=== PATIENT | male | born 1940 | race Hispanic/Latino ===

== ENCOUNTER 2017-09-20 18:57 | Emergency (ER) | payer MEDICARE ==
[2017-09-20 19:06] VITALS: RESP 18; TEMP 97.9; BMI 26.9
[2017-09-20] MEDS ORDERED: Oxycodone/Acetaminophen 5/325 mg Tab PO STA (19:19)
--- NOTE | 2017-09-20 19:24 | ED PDOC ---
Arrival/HPI - General Chief Complaint: Trauma Time Seen by Provider: 09/20/17 19:09 Historian: Patient - History of Present Illness Narrative History of Present Illness (Text): 09/20/17 19:25 77yo male who present with complaint of b/l knee pain. He notes history of b/l knee pain x years. States he tripped and fell, hitting knees on the floor yesterday. Describes pain as sharp, worse with ambulation. Notes that he have orthopedist and have had ??unknown surgery on the knee in the past. Denies calf pain, SOB, diaphoresis, chest pain, any other complaint. Past Medical History - Provider Review Nursing Documentation Reviewed: Yes - Infectious Disease Hx of Infectious Diseases: None - Tetanus Immunization Tetanus Immunization: Unknown - Cardiac Hx WA: Yes Hx Hypertension: Yes - Pulmonary Hx Respiratory Disorders: No - Neurological Hx Neurological Disorder: No - HEENT Hx HEENT Disorder: (WEARS RX GLASSES) - Renal Hx Renal Disorder: No - Endocrine/Metabolic Hx Endocrine Disorders: No - Hematological/Oncological Hx Blood Transfusions: No - Integumentary Hx Dermatological Disorder: Yes (SKIN TAGS ALL OVER NECK,ABDOMEN,CHEST) - Musculoskeletal/Rheumatological Hx Musculoskeletal Disorders: Yes (LEFT ROTATOR CUFF SX) - Gastrointestinal Hx Diverticulitis: Yes - Genitourinary/Gynecological Hx Genitourinary Disorders: No - Psychiatric Hx Emotional Abuse: No Hx Physical Abuse: No Hx Substance Use: No - Surgical History Hx Cardiac Catheterization: Yes Hx Coronary Stent: Yes (3) - Anesthesia Hx Anesthesia Reactions: No Hx Malignant Hyperthermia: No - Suicidal Assessment Feels Threatened In Home Enviroment: No Family/Social History - Physician Review Nursing Documentation Reviewed: Yes Family/Social History: Unknown Family HX Smoking Status: Never Smoked Hx Alcohol Use: Yes (USED TO DRINK WEEKENDS/VODKA QUIT) Hx Substance Use: No Hx Substance Use Treatment: No Allergies/Home Meds Allergies/Adverse Reactions: Allergies No Known Allergies Allergy (Verified 09/20/17 19:08) Home Medications: Home Meds Medication Instructions Recorded Confirmed Clonazepam [Klonopin] 0.5 mg PO BID PRN 05/24/12 09/20/17 Cyclobenzaprine [Cyclobenzaprine 10 mg PO BID PRN MDD pain 09/20/17 09/20/17 HCl] Ibuprofen [Motrin] 400 mg PO TID PRN 09/20/17 09/20/17 Omeprazole [Omeprazole] 1 tab PO DAILY 09/20/17 09/20/17 Review of Systems - Physician Review All systems were reviewed & negative as marked: Yes - Review of Systems Constitutional: Normal Eyes: Normal ENT: Normal Respiratory: Normal Cardiovascular: Normal Gastrointestinal: Normal Genitourinary Male: Normal Musculoskeletal: Arthralgias (B/L knee) Skin: Normal Neurological: Normal Endocrine: Normal Hemo/Lymphatic: Normal Psychiatric: Normal Physical Exam Vital Signs Reviewed: Yes Vital Signs Temp Pulse Resp BP Pulse Ox 09/20/17 20:15 57 L 18 152/66 H 98 09/20/17 19:05 97.9 F 76 18 131/76 96 Temperature: Afebrile Blood Pressure: Normal Pulse: Regular Respiratory Rate: Normal Appearance: Positive for: Well-Appearing, Non-Toxic, Comfortable Pain Distress: None Mental Status: Positive for: Alert and Oriented X 3 - Systems Exam Head: Present: Atraumatic, Normocephalic Pupils: Present: PERRL Extroacular Muscles: Present: EOMI Conjunctiva: Present: Normal Mouth: Present: Moist Mucous Membranes Neck: Present: Normal Range of Motion Respiratory/Chest: Present: Clear to Auscultation, Good Air Exchange. No: Respiratory Distress, Accessory Muscle Use Cardiovascular: Present: Regular Rate and Rhythm, Normal S1, S2. No: Murmurs Abdomen: Present: Normal Bowel Sounds. No: Tenderness, Distention, Peritoneal Signs Back: Present: Normal Inspection Upper Extremity: Present: Normal Inspection. No: Cyanosis, Edema Lower Extremity: Present: CALF TENDERNESS (Right calf), NORMAL PULSES, Normal ROM, Tenderness (Right lateral knee). No: Edema, Stephy's Sign, Swelling, Erythema, Deformity, Temperature Abnormalties Neurological: Present: GCS=15, CN II-XII Intact, Speech Normal Skin: Present: Warm, Dry, Normal Color. No: Rashes Psychiatric: Present: Alert, Oriented x 3, Normal Insight, Normal Concentration Medical Decision Making ED Course and Treatment: 09/20/17 20:15 B/L knee xray - No acute fracture noted Per US tech Doppler was negative for DVT b/l Result was DW the pt. Aguila wrap applied. Cane given. Pt have orthopedist and was referred to his orthopedist. - RAD Interpretation Radiology Orders: 09/20/17 19:18 DUPLEX LOWER EXTRM VEIN BILAT [US] Stat 09/20/17 19:19 KNEE W PATELLA BILAT 3 VIEW [RAD] Stat - Medication Orders Current Medication Orders: Discontinued Medications Oxycodone/Acetaminophen (Percocet 5/325 Mg Tab) 1 tab PO STAT STA Stop: 09/20/17 19:20 Last Admin: 09/20/17 19:30 Dose: 1 tab MAR Pain Assessment Document 09/20/17 19:30 CNR (Rec: 09/20/17 19:32 CNR [id number]) Pain Reassessment Is this a pain reassessment? Yes Sleep Is patient sleeping during reassessment? No Presence of Pain Presence of Pain Yes Location Left, Right or Bilateral Bilateral Pain Location Body Site Knee Description Description Constant Intensity of Pain at present 10 Disposition/Present on Arrival - Present on Arrival Any Indicators Present on Arrival: No History of DVT/PE: No History of Uncontrolled Diabetes: No Urinary Catheter: No History of Decub. Ulcer: No History Surgical Site Infection Following: None - Disposition Have Diagnosis and Disposition been Completed?: Yes Diagnosis: Knee pain, bilateral Disposition: HOME/ ROUTINE Disposition Time: 20:20 Patient Plan: Discharge Patient Problems: Current Active Problems Problem Status Onset Knee pain, bilateral Acute Condition: STABLE Discharge Instructions (ExitCare): Knee Pain (ED) Additional Instructions: Follow up with your Orthopedist Return to ED for any new symptoms Prescriptions: Naproxen [Naprosyn] 500 mg PO BID #20 tab Referrals: Reece Haddad MD [Primary Care Provider] - Follow up with primary Forms: [employer] (Namibian)
[2017-09-20 20:20] VITALS: BP 152/66; PULSE 57; O2SAT 98
--- NOTE | 2017-09-21 09:43 | RAD ---
PROCEDURE: Bilateral Knee Radiographs. HISTORY: knee pain COMPARISON: None. FINDINGS: BONES: Right Knee: No fracture. Osteophytosis medial knee joint line most notable. Osseous hypertrophy also tibial fibular articulation. Spurring patellofemoral articulation Left Knee: Same as above JOINTS: Right Knee: Osteoarthrosis Left knee: Osteoarthrosis SOFT TISSUES: Right Knee: Atherosclerotic vascular calcifications thigh and lower leg Left Knee: Same as above JOINT EFFUSION: Right Knee: None. Left Knee: None. OTHER FINDINGS: None. IMPRESSION: No fracture or dislocation. Bilateral multi compartmental osteoarthrosis Atherosclerotic vascular disease-bilateral
--- NOTE | 2017-09-21 09:49 | US ---
HISTORY: Leg pain and swelling. Evaluate for DVT PHYSICIAN(S): Abelino Griffiths MD. TECHNIQUE: Duplex sonography and color-flow Doppler with graded compression were used to evaluate the deep venous systems of both lower extremities. FINDINGS: The visualized deep venous systems of both lower extremities are sonographically normal and compressible. Normal wave forms and augmentation are seen. There is no sonographic evidence for deep venous thrombosis in the visualized segments of both lower extremities. IMPRESSION: No sonographic evidence for deep venous thrombosis in the visualized segments of both lower extremities.
== END 2017-09-20 21:19 | disposition home or self-care (01) ==
LOC: ED 18:57
DX: M25.562 Pain in left knee (principal); M25.561 Pain in right knee; I10 Essential (primary) hypertension; I25.2 Old myocardial infarction

== ENCOUNTER 2018-02-04 00:42 | Inpatient (IN) | payer MEDICARE ==
--- NOTE | 2018-02-04 01:46 | ED PDOC ---
Arrival/HPI - History of Present Illness Time/Duration: < week Symptom Course: Improving Quality: Aching Activities at Onset: Rest <Camden Hood - Last Filed: 02/04/18 03:45> <Manjit Lenz DO - Last Filed: 02/04/18 06:28> - General Chief Complaint: Chest Pain Time Seen by Provider: 02/04/18 00:54 - History of Present Illness Narrative History of Present Illness (Text): 02/04/18 01:42 77M pmhx significant for HTN, CAD presents to [facility] ED after multiple episodes of nausea, non-bloody, non-bilious vomiting, nonbloody diarrhea that started on Tuesday01/31/18 (3 days). States was in the hospital, the evening he went home and symptoms started. In addition, patient had total body aches, generalized weakness, and fevers w/ a Tm 100.4. Patient currently no long is experiencing arthralgias. Currently unable to eat or drink w/o vomiting or diarrhea. Patient fell in house 3 times. Never lost consciousness. took 1.5hrs to get back up due to weakness. Denies abdominal pain. PMD: Dr. Haddad PMH: stated above PSH: shoulder sgx ALL: NKDA SocialHx: hx of tobacco use, last use 40+ years ago. ambulates w/ cane at home. 02/04/18 03:05 (Camden Hood) Past Medical History - Provider Review Nursing Documentation Reviewed: Yes - Travel History Have you recently traveled outside [place] w/in the past 3 mons?: No - Infectious Disease Hx of Infectious Diseases: None - Tetanus Immunization Tetanus Immunization: Unknown - Cardiac Hx MA: Yes Hx Hypertension: Yes - Pulmonary Hx Respiratory Disorders: No - Neurological Hx Neurological Disorder: No - HEENT Hx HEENT Disorder: (WEARS RX GLASSES) - Renal Hx Renal Disorder: No - Endocrine/Metabolic Hx Endocrine Disorders: No - Hematological/Oncological Hx Blood Transfusions: No - Integumentary Hx Dermatological Disorder: Yes (SKIN TAGS ALL OVER NECK,ABDOMEN,CHEST) - Musculoskeletal/Rheumatological Hx Musculoskeletal Disorders: Yes (LEFT ROTATOR CUFF SX) - Gastrointestinal Hx Diverticulitis: Yes - Genitourinary/Gynecological Hx Genitourinary Disorders: No - Psychiatric Hx Emotional Abuse: No Hx Physical Abuse: No Hx Substance Use: No - Surgical History Hx Cardiac Catheterization: Yes Hx Coronary Stent: Yes (3) - Anesthesia Hx Anesthesia Reactions: No Hx Malignant Hyperthermia: No - Suicidal Assessment Feels Threatened In Home Enviroment: No <Camden Hood - Last Filed: 02/04/18 03:45> Family/Social History - Physician Review Nursing Documentation Reviewed: Yes Family/Social History: Other (non-contributory) Smoking Status: Never Smoked Hx Alcohol Use: Yes (USED TO DRINK WEEKENDS/VODKA QUIT) Hx Substance Use: No Hx Substance Use Treatment: No <Camden Hood - Last Filed: 02/04/18 03:45> Allergies/Home Meds <Camden Hood - Last Filed: 02/04/18 03:45> <Manjit Lenz DO - Last Filed: 02/04/18 06:28> Allergies/Adverse Reactions: Allergies No Known Allergies Allergy (Verified 02/04/18 00:48) Home Medications: Home Meds Medication Instructions Recorded Confirmed Aspirin [Aspirin Chewable] 81 mg PO 02/04/18 Lisinopril [Zestril] 10 mg PO DAILY 02/04/18 02/04/18 Meclizine [Antivert] 25 mg PO Q6 PRN 02/04/18 02/04/18 Metoprolol 02/04/18 Metoprolol Tartrate [Lopressor] PO BID 02/04/18 Omeprazole Magnesium [Prilosec Otc] 20 mg PO 02/04/18 Review of Systems - Review of Systems Constitutional: Fatigue, Fevers. absent: Weight Change, Night Sweats Eyes: absent: Vision Changes, Photophobia ENT: absent: Hearing Changes, Tinnitus Respiratory: absent: SOB, Cough, Sputum Cardiovascular: absent: Chest Pain, Palpitations Gastrointestinal: Diarrhea, Nausea, Vomiting. absent: Abdominal Pain, Constipation Genitourinary Male: absent: Dysuria Musculoskeletal: Arthralgias Skin: absent: Rash Neurological: absent: Headache Endocrine: absent: Diaphoresis Hemo/Lymphatic: absent: Adenopathy Psychiatric: absent: Anxiety <Camden Hood - Last Filed: 02/04/18 03:45> - Physician Review All systems were reviewed & negative as marked: Yes <Manjit Lenz DO - Last Filed: 02/04/18 06:28> Physical Exam Vital Signs Reviewed: Yes Temperature: Afebrile Blood Pressure: Normal Pulse: Regular Respiratory Rate: Normal Appearance: Positive for: Well-Appearing, Non-Toxic, Comfortable Pain Distress: None Mental Status: Positive for: Alert and Oriented X 3 - Systems Exam Head: Present: Atraumatic Pupils: Present: PERRL Extroacular Muscles: Present: EOMI Conjunctiva: Present: Normal Mouth: Present: Dry Pharnyx: No: EXUDATE, Peritonsilar Swelling Neck: Present: Normal Range of Motion. No: JVD Respiratory/Chest: Present: Clear to Auscultation. No: Respiratory Distress, Accessory Muscle Use, Wheezes, Rhonchi Cardiovascular: Present: Regular Rate and Rhythm, Normal S1, S2. No: Murmurs Abdomen: No: Tenderness, Distention, Peritoneal Signs Back: No: CVA Tenderness, Decubitus Ulcer Upper Extremity: Present: Normal ROM, NORMAL PULSES. No: Normal Inspection Lower Extremity: Present: Normal Inspection. No: CALF TENDERNESS Neurological: Present: GCS=15, Speech Normal Skin: Present: Dry, Other (multiple dark raised skin lesions on back, chest and neck) Psychiatric: Present: Alert, Oriented x 3 <Camden Hood - Last Filed: 02/04/18 03:45> Vital Signs Temp Pulse Resp BP Pulse Ox 02/04/18 03:30 84 18 112/62 100 02/04/18 00:54 98.7 F 80 16 105/55 L 93 L Medical Decision Making - Lab Interpretations I have reviewed the lab results: Yes - EKG Interpretation Interpreted by ED Physician: Yes Type: 12 lead EKG <Camden oHod - Last Filed: 02/04/18 03:45> - Lab Interpretations I have reviewed the lab results: Yes - EKG Interpretation Interpreted by ED Physician: Yes Type: 12 lead EKG <Manjit Lenz DO - Last Filed: 02/04/18 06:28> ED Course and Treatment: 02/04/18 01:49 - IVF - Pepcid/Zofran - CT scan of abd - CBC/CMP - f/u lab work - re-evaluate (Camden Hood) Patient Seen With Resident: In agreement with resident note which contains more details about the patient. Patient was seen and evaluated with resident. Came up with plan and treatment together. 77 year old male presents complaining of multiple epsiodes of nasuea, vomiting, and diarrhea that began 3 days ago associated with generalized weakness and fever. Plan: -- CT Abd & Pelvis w/o Contrast -- EKG -- Labs -- Chest X-Ray -- Pepcid, IV Fluids, and Zofran Inj -- Urine Culture -- Urinalysis (Manjit Lenz DO) - Lab Interpretations Narrative Lab Interpretation (Text): 02/04/18 02:21 Cr- 2.5: severe dehydration CKMB- > 1000 (Camden Hood) Lab Results: 02/04/18 01:43 02/04/18 01:43 Lab Results 02/04/18 01:43: Sodium 142, Potassium 3.4 L, Chloride 99, Carbon Dioxide 30, Anion Gap 17, BUN 31 H, Creatinine 2.5 H, Est GFR ( Amer) 31, Est GFR ( Non-Af Amer) 25, Random Glucose 128 H, Calcium 9.5, Magnesium 2.3 H, Total Bilirubin 0.7, AST 96 H, ALT 47, Alkaline Phosphatase 63, Lactate Dehydrogenase 776 H, Total Creatine Kinase > 1600 H, CK-MB (CK-2) 1.2, CK-MB (CK-2) % Cancelled, Troponin I 0.05 D, NT-Pro-B Natriuret Pep 240, Total Protein 7.4, Albumin 4.1, Globulin 3.4, Albumin/Globulin Ratio 1.2 02/04/18 01:43: WBC 3.8 L D, RBC 5.43, Hgb 15.7, Hct 46.7, MCV 86.0, MCH 28.9, MCHC 33.6, RDW 14.5, Plt Count 118 L, MPV 10.3, Gran % 46.3 L, Lymph % (Auto) 39.7 H, Potter % (Auto) 11.3 H, Eos % (Auto) 2.4, Baso % (Auto) 0.3, Gran # 1.76, Lymph # (Auto) 1.5, Potter # (Auto) 0.4, Eos # (Auto) 0.1, Baso # (Auto) 0.01 - RAD Interpretation Narrative RAD Interpretations (Text): 02/04/18 03:45 CT scan w/o Contrast- 1. No acute findings. 2. Internalized biliary stent. 3. Mild enlargement of cystic pancreatic tail mass which was seen on prior examination CXR: No acute pulmonary findings. Cardiomegaly, Old left AC separation (Camden Hood) Radiology Orders: 02/04/18 01:15 CHEST PORTABLE [RAD] Stat 02/04/18 02:21 ABD & PELVIS W/O PO OR IV CONT [CT] Stat - EKG Interpretation EKG Interpretation (Text): 02/04/18 05:04 NSR QTc 90ms (Camden Hood) - Medication Orders Current Medication Orders: Sodium Chloride (Sodium Chloride 0.9%) 1,000 mls @ 100 mls/hr IV .Q10H KELLIE Last Admin: 02/04/18 02:04 Dose: 100 mls/hr eMAR Start Stop Document 02/04/18 02:04 OCS (Rec: 02/04/18 02:04 [id number] Intravenous Solution Start Date 02/04/18 Start Time 02:04 Discontinued Medications Famotidine (Pepcid) 20 mg IVP STAT STA Stop: 02/04/18 01:42 Last Admin: 02/04/18 02:05 Dose: 20 mg IVP Administration Document 02/04/18 02:05 OCS (Rec: 02/04/18 02:05 [facility]CS [id number]) Charges for Administration # of IVP Administrations 1 Ondansetron HCl (Zofran Inj) 4 mg IVP STAT STA Stop: 02/04/18 01:42 Last Admin: 02/04/18 02:05 Dose: 4 mg IVP Administration Document 02/04/18 02:05 OCS (Rec: 02/04/18 02:05 [id number] Charges for Administration # of IVP Administrations 1 <Camden Hood - Last Filed: 02/04/18 03:45> - PA / INTERNAL SALES ENGINEER / Resident Statement / has reviewed & agrees with the documentation as recorded. / has examined the patient and agrees with the treatment plan. - Scribe Statement The provider has reviewed the documentation as recorded by the Scribe <Manjit Lenz DO - Last Filed: 02/04/18 06:28> - Scribe Statement Yara Villanueva Provider Scribe Attestation: All medical record entries made by the Scribe were at my direction and personally dictated by me. I have reviewed the chart and agree that the record accurately reflects my personal performance of the history, physical exam, medical decision making, and the department course for this patient. I have also personally directed, reviewed, and agree with the discharge instructions and disposition. (Manjit Lenz DO) Disposition/Present on Arrival - Present on Arrival Any Indicators Present on Arrival: No History of DVT/PE: No History of Uncontrolled Diabetes: No Urinary Catheter: No History of Decub. Ulcer: No History Surgical Site Infection Following: None - Disposition Have Diagnosis and Disposition been Completed?: Yes Disposition Time: 05:05 Patient Plan: Admission <Camden Hood - Last Filed: 02/04/18 03:45> - Disposition Disposition Time: 02:50 <Manjit Lenz DO - Last Filed: 02/04/18 06:28> - Disposition Diagnosis: Dehydration, MARIE (acute kidney injury) Disposition: HOSPITALIZED Patient Problems: Current Active Problems Problem Status Onset Dehydration Acute MARIE (acute kidney injury) Acute Condition: STABLE
[2018-02-04] MEDS ORDERED: Iohexol 350 MG/100 ML VIAL ONE (01:48)
[2018-02-04 01:53] LABS: BASO # 0.01 K/mm3 (0.0-2.0); BASO % 0.3 % (0.0-3.0); EOS # 0.1 (0.0-0.7); EOS % 2.4 % (1.5-5.0); GRAN # 1.76 (1.4-6.5); GRAN % 46.3 % (50.0-68.0); HEMOGLOBIN 15.7 g/dL (14.0-18.0); LYMPH # 1.5 (1.2-3.4); LYMPH % 39.7 % (22.0-35.0); MEAN CORPUSCULAR HEMOGLOBIN 28.9 pg (25.0-35.0); MEAN CORPUSCULAR HGB CONC 33.6 g/dl (31.0-37.0); MEAN PLATELET VOLUME 10.3 fl (7.0-11.0); MONO # 0.4 (0.1-0.6); MONO % 11.3 % (1.0-6.0); RBC 5.43 10^6/uL (3.5-6.1); RED CELL DISTRIBUTION WIDTH 14.5 % (11.5-14.5); WHITE BLOOD COUNT 3.8 10^3/ul (4.5-11.0)
[2018-02-04] MEDS: Sodium Chloride 0.9% 1,000 ML IV SCH ×2 (02:04→15:48)
[2018-02-04 02:07] LABS: ALB/GLOB RATIO 1.2 (1.1-1.8); ALBUMIN 4.1 g/dL (3.0-4.8); ALT/SGPT 47 U/L (7-56); AST/SGOT 96 U/L (17-59); BLOOD UREA NITROGEN 31 mg/dL (7-21); CALCIUM 9.5 mg/dL (8.4-10.5); GFR AFRICAN-AMERICAN 31; GFR NON-AFRICAN AMERICAN 25
[2018-02-04 02:19] LABS: B-TYPE NATRIURETIC PEPTIDE 240 pg/mL (0-450); TROPONIN I 0.05 ng/mL
[2018-02-04 02:42] LABS: CK-MB 1.2 ng/mL (0.0-3.6)
--- NOTE | 2018-02-04 03:30 | CT ---
EXAM: CT Abdomen and Pelvis Without Intravenous Contrast CLINICAL HISTORY: 77 years old, male; Pain; Abdominal pain; Additional info: Intractible vomiting TECHNIQUE: Axial computed tomography images of the abdomen and pelvis without intravenous contrast. All CT scans at this facility use one or more dose reduction techniques, viz.: automated exposure control; ma/kV adjustment per patient size (including targeted exams where dose is matched to indication; i.e. head); or iterative reconstruction technique. 656 images are submitted.Limitations: Absence of IV contrast decreases sensitivity for detecting vascular and visceral injury and abnormality. Coronal and sagittal reformatted images were created and reviewed. COMPARISON: CT - ABD PELVIS PO CONTRAST ONLY 2017-02-18 19:17 FINDINGS: Lower thorax: Bibasilar nonspecific infiltrates are present, consistent with atelectasis or pneumonia. Small right pleural effusion. Small hiatal hernia. Possible ulcerative plaque versus penetrating ulcer in the distal descending thoracic aorta as seen on image one series 2 versus artifact. ABDOMEN: Liver: There is intrahepatic biliary stent. Gallbladder and bile ducts: Cholecystectomy. Pancreas: There is pancreatic tail hypodense mass measuring 3.1 x 2.6 cm which wasn't seen on prior examination from February 18, 2017 and has somewhat increased in size. There is no surrounding inflammation. Correlation with patient's clinical diagnosis is recommended. Spleen: Unremarkable. No splenomegaly. Adrenals: Unremarkable. No mass. Kidneys and ureters: Bilateral perinephric scarring may be a sequela of infection, inflammation or aging. No obstructing stones. No hydronephrosis. Stomach and bowel: Nonspecific gastric thickening likely due to under distention. Correlation with clinical data is recommended if gastritis is suspected.Diverticulosis. No obstruction. Appendix: Normal appendix. PELVIS: Bladder: Partially decompressed bladder with bladder wall thickening. Correlation with urinalysis is recommended only if clinical cystitis is suspected. Reproductive: Enlarged prostate gland with a patient. ABDOMEN and PELVIS: Intraperitoneal space: Unremarkable. No free air. No significant fluid collection. Bones/joints: L5-S1 vacuum disc. No acute fracture. No dislocation. Soft tissues: Left more than right inguinal herniation of fat. Vasculature: Distal abdominal aortic aneurysm measuring 3.1 cm. no rupture Lymph nodes: Unremarkable. No enlarged lymph nodes. IMPRESSION: 1. No acute findings. 2. Internalized biliary stent. 3. 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 Correlation with patient's clinical diagnosis is recommended. Correlation with internal medicine evaluation and further workup or followup as recommended by patient's clinical data.
[2018-02-04 06:44] VITALS: BMI 28.0
--- NOTE | 2018-02-04 09:57 | RAD ---
HISTORY: Chest pain COMPARISON: 07/15/2015 FINDINGS: LUNGS: No active pulmonary disease. PLEURA: No significant pleural effusion identified, no pneumothorax apparent. CARDIOVASCULAR: No radiographic findings to suggest acute or significant cardiovascular disease. OSSEOUS STRUCTURES: No significant abnormalities. VISUALIZED UPPER ABDOMEN: Normal. OTHER FINDINGS: None. IMPRESSION: No active disease. No significant interval change compared to the prior examination(s).
[2018-02-04 11:02] LABS: BASO # 0.01 K/mm3 (0.0-2.0); BASO % 0.3 % (0.0-3.0); EOS # 0.1 (0.0-0.7); EOS % 3.1 % (1.5-5.0); GRAN # 1.06 (1.4-6.5); GRAN % 37.1 % (50.0-68.0); HEMOGLOBIN 15.3 g/dL (14.0-18.0); LYMPH # 1.3 (1.2-3.4); LYMPH % 45.5 % (22.0-35.0); MEAN CELL VOLUME 86.4 fl (80.0-105.0); MEAN CORPUSCULAR HGB CONC 33.6 g/dl (31.0-37.0); MEAN PLATELET VOLUME 9.9 fl (7.0-11.0); MONO # 0.4 (0.1-0.6); RBC 5.28 10^6/uL (3.5-6.1); RED CELL DISTRIBUTION WIDTH 14.7 % (11.5-14.5)
[2018-02-04 11:10] LABS: WHITE BLOOD COUNT 2.9 10^3/ul (4.5-11.0)
[2018-02-04 11:13] LABS: ALB/GLOB RATIO 1.3 (1.1-1.8); CALCIUM 9.1 mg/dL (8.4-10.5)
[2018-02-04 12:26] LABS: CK-MB 1.8 ng/mL (0.0-3.6)
--- NOTE | 2018-02-04 16:50 | CARD ---
APPROVED REPORT EKG Measurement Heart [id number] <Conclusion> Normal sinus rhythm ST abnormality, possible digitalis effect Prolonged QT Abnormal ECG
[2018-02-04] MEDS: Metoprolol Succinate 50 mg XL Tab PO SCH (17:34)
[2018-02-04] MEDS ORDERED: Potassium Chloride 20 mEq ER Tab PO STA (19:38)
--- NOTE | 2018-02-04 21:23 | HP ---
DATE OF EXAM: 02/04/2018 HISTORY OF PRESENT ILLNESS: Mr. Arita is a 77-year-old male, admitted to the hospital with episodes of nausea, vomiting. He was found on the floor for several hours, could not get up. Fever of 100.4 at home. CPK elevated consistent with rhabdomyolysis. Creatinine is elevated consistent with rhabdomyolysis because of lying on the floor for around an hour. Denies any pain. Now feeling much better. PAST MEDICAL HISTORY: Hypertension, CAD, history of myocardial infarction in the past. PAST SURGICAL HISTORY: Left rotator cuff surgery, history of diverticulitis, also coronary artery stent placement. PERSONAL HISTORY: Nonsmoker, no history of alcohol abuse. FAMILY HISTORY: Noncontributory. SOCIAL HISTORY: Lives in home with the . ALLERGIES: NO KNOWN DRUG ALLERGIES. HOME MEDICATIONS: Aspirin 81 mg daily, lisinopril 10 mg daily, Antivert 25 mg p.o. q. 6 hours p.r.n., metoprolol 50 mg p.o. b.i.d., and omeprazole 20 mg p.o. daily. REVIEW OF SYSTEMS: As per HPI. Rest of 12-point review of systems reviewed and negative. PHYSICAL EXAMINATION: GENERAL: Comfortable in bed, in no acute distress. VITAL SIGNS: Temperature 98.7, heart rate 80 per minute, respiratory rate 16 per minute., blood pressure 105/55, pulse ox 93% on room air. HEENT: Normal. Oral mucosa moist. NECK: Supple. CHEST: Air entry present and equal bilaterally. No added sounds. CARDIOVASCULAR: S1, S2 normal. No murmur. No gallop. ABDOMEN: Soft, nontender. No hepatosplenomegaly. EXTREMITIES: No edema. SKIN: No petechiae. No rash. CENTRAL NERVOUS SYSTEM: Alert and oriented x3. No focal sensory or motor deficits. LABORATORY DATA: On admission: White count 3.8, hemoglobin 15.7, hematocrit 46.7, platelet 108. Sodium 142, potassium 3.4, BUN 31, creatinine 2.5. CPK 1600. Troponin 0.05. Repeat labs today showed white count 2.9, hemoglobin 15.3, platelet count 96, potassium 3.3, creatinine 2.3, elevated creatine kinase to 4000. ASSESSMENT: 1. Rhabdomyolysis. 2. Coronary artery disease. 3. Hypertension. 4. Leukopenia. 5. Thrombocytopenia. 6. Hypokalemia. PLAN: He will be admitted to the hospital. IV hydration, normal saline 100 mL an hour. We will repeat the potassium, K-Dur 40 mEq p.o. daily. We will monitor the blood count closely, monitor the CPK and LDH. One set of troponin was negative. We will continue Protonix, lisinopril 10 mg daily, metoprolol 50 mg p.o. b.i.d., aspirin 81 mg daily. Vannesa Zimmerman MD [facility]
[2018-02-05] MEDS: Sodium Chloride 0.9% 1,000 ML IV SCH (03:30)
[2018-02-05 05:08] LABS: PH,URINE 5.5 (4.7-8.0); URINE BILIRUBIN NEGATIVE (NEGATIVE); URINE BLOOD NEGATIVE (NEGATIVE); URINE GLUCOSE (UA) NEGATIVE (NEGATIVE); URINE LEUKOCYTE ESTERASE NEGATIVE Leu/uL (NEGATIVE); URINE PROTEIN TRACE mg/dL (<30 mg/dL); URINE UROBILINOGEN 0.2 E.U./dL (<1 E.U./dL)
[2018-02-05 05:09] LABS: URINE APPEARANCE CLEAR (CLEAR); URINE COLOR YELLOW (YELLOW)
[2018-02-05 05:32] LABS: URINE BACTERIA MANY (NEG); URINE FINE GRANULAR CAST 0 - 2 /hpf (0-2); URINE HYALINE CAST 0 - 2 /hpf
[2018-02-05 07:08] LABS: BASO # 0.02 K/mm3 (0.0-2.0); BASO % 0.5 % (0.0-3.0); EOS # 0.1 (0.0-0.7); GRAN # 0.94 (1.4-6.5); GRAN % 25.6 % (50.0-68.0); HEMOGLOBIN 14.2 g/dL (14.0-18.0); LYMPH # 2.2 (1.2-3.4); LYMPH % 58.6 % (22.0-35.0); MEAN CELL VOLUME 86.7 fl (80.0-105.0); MEAN CORPUSCULAR HEMOGLOBIN 28.2 pg (25.0-35.0); MEAN CORPUSCULAR HGB CONC 32.5 g/dl (31.0-37.0); MEAN PLATELET VOLUME 10.4 fl (7.0-11.0); MONO # 0.5 (0.1-0.6); MONO % 12.3 % (1.0-6.0); RBC 5.04 10^6/uL (3.5-6.1); RED CELL DISTRIBUTION WIDTH 14.7 % (11.5-14.5); WHITE BLOOD COUNT 3.7 10^3/ul (4.5-11.0)
[2018-02-05 07:12] LABS: ALB/GLOB RATIO 1.2 (1.1-1.8); ALBUMIN 3.9 g/dL (3.0-4.8); CALCIUM 8.9 mg/dL (8.4-10.5)
[2018-02-05 08:51] LABS: CK-MB 1.4 ng/mL (0.0-3.6)
[2018-02-05] MEDS: Metoprolol Succinate 50 mg XL Tab PO SCH ×2 (09:55→17:48)
--- NOTE | 2018-02-05 23:32 | CP.PCM.PN ---
Subjective - Date & Time of Evaluation Date of Evaluation: 02/05/18 Time of Evaluation: 13:00 - Subjective Subjective: DATE OF EXAM: 02/05/2018 HISTORY OF PRESENT ILLNESS: Mr. Arita is a 77-year-old male, admitted to the hospital with episodes of nausea, vomiting. He was found on the floor for several hours, could not get up. Fever of 100.4 at home. CPK elevated consistent with rhabdomyolysis. Creatinine is elevated consistent with rhabdomyolysis because of lying on the floor for around an hour. Denies any pain. GC improved today. Ambulating in room. PAST MEDICAL HISTORY: Hypertension, CAD, history of myocardial infarction in the past. PAST SURGICAL HISTORY: Left rotator cuff surgery, history of diverticulitis, also coronary artery stent placement. PERSONAL HISTORY: Nonsmoker, no history of alcohol abuse. FAMILY HISTORY: Noncontributory. SOCIAL HISTORY: Lives in home with the . ALLERGIES: NO KNOWN DRUG ALLERGIES. HOME MEDICATIONS: reviewed. REVIEW OF SYSTEMS: As per HPI. Rest of 12-point review of systems reviewed and negative. PHYSICAL EXAMINATION: GENERAL: Comfortable in bed, in no acute distress. VITAL SIGNS: reviewed. HEENT: Normal. Oral mucosa moist. NECK: Supple. CHEST: Air entry present and equal bilaterally. No added sounds. CARDIOVASCULAR: S1, S2 normal. No murmur. No gallop. ABDOMEN: Soft, nontender. No hepatosplenomegaly. EXTREMITIES: No edema. SKIN: No petechiae. No rash. CENTRAL NERVOUS SYSTEM: Alert and oriented x3. No focal sensory or motor deficits. LABORATORY DATA: reviewed. ASSESSMENT: 1. Rhabdomyolysis.: improved. CPK improved. Continue IV hydration at 80 cc/hr. 2. Coronary artery disease.- Hemodynamically stable. 3. Hypertension.: BP controlled with current meds. 4. Leukopenia.: improved 5. Thrombocytopenia.: improved. 6. Hypokalemia.: resolved. 7. Anxiety : xanax 0.25 mg Q6 hr prn. Labs ordered for am. Vannesa Zimmerman MD Objective - Vital Signs/Intake and Output Vital Signs (last 24 hours): Temp Pulse Resp BP Pulse Ox 98.5 F 58 L 20 160/80 H 93 L 02/05/18 18:00 02/05/18 18:00 02/05/18 18:00 02/05/18 18:00 02/05/18 18:00 - Medications Medications: Current Medications Aspirin (Aspirin Chewable) 81 mg PO DAILY [facility] Last Admin: 02/05/18 09:56 Dose: 81 mg Sodium Chloride (Sodium Chloride 0.9%) 1,000 mls @ 100 mls/hr IV .Q10H [facility] Last Admin: 02/05/18 03:30 Dose: Not Given Lisinopril (Zestril) 10 mg PO DAILY [facility] Last Admin: 02/05/18 09:55 Dose: 10 mg Lorazepam (Ativan) 1 mg IVP Q6H PRN; Protocol PRN Reason: Agitation Meclizine HCl (Antivert) 25 mg PO Q6 PRN PRN Reason: Dizziness Metoprolol Succinate (Toprol Xl) 50 mg PO BID [facility] Last Admin: 02/05/18 17:48 Dose: Not Given - Labs Labs: 02/05/18 06:30 02/05/18 06:30
[2018-02-06] MEDS: Sodium Chloride 0.9% 1,000 ML IV SCH ×2 (07:10→18:16)
[2018-02-06 07:44] LABS: BASO # 0.02 K/mm3 (0.0-2.0); BASO % 0.7 % (0.0-3.0); EOS # 0.2 (0.0-0.7); EOS % 7.9 % (1.5-5.0); GRAN # 0.79 (1.4-6.5); GRAN % 25.9 % (50.0-68.0); LYMPH # 1.7 (1.2-3.4); LYMPH % 54.3 % (22.0-35.0); MEAN CELL VOLUME 86.1 fl (80.0-105.0); MEAN CORPUSCULAR HEMOGLOBIN 27.9 pg (25.0-35.0); MEAN CORPUSCULAR HGB CONC 32.4 g/dl (31.0-37.0); MEAN PLATELET VOLUME 10.2 fl (7.0-11.0); MONO # 0.3 (0.1-0.6); MONO % 11.2 % (1.0-6.0); RBC 4.66 10^6/uL (3.5-6.1); RED CELL DISTRIBUTION WIDTH 14.4 % (11.5-14.5)
[2018-02-06 07:56] LABS: BLOOD UREA NITROGEN 23 mg/dL (7-21); CALCIUM 8.9 mg/dL (8.4-10.5); GFR AFRICAN-AMERICAN > 60; GFR NON-AFRICAN AMERICAN > 60
[2018-02-06 10:12] LABS: CK-MB 1.5 ng/mL (0.0-3.6)
[2018-02-06] MEDS: Metoprolol Succinate 50 mg XL Tab PO SCH ×2 (10:39→18:13)
[2018-02-06] MEDS ORDERED: Potassium Chloride 20 mEq ER Tab PO ONE (11:26)
--- NOTE | 2018-02-06 12:51 | RAD ---
PROCEDURE: Bilateral Knee Radiographs. HISTORY: knee pain COMPARISON: None. FINDINGS: BONES: Right Knee: Normal. No fracture. Left Knee: Normal. No fracture. JOINTS: Right Knee: Moderate joint space narrowing medial compartment Left knee: As above SOFT TISSUES: Right Knee: Normal. Left Knee: Normal. JOINT EFFUSION: Right Knee: None. Left Knee: None. OTHER FINDINGS: None. IMPRESSION: Moderate joint space narrowing in the medial compartment bilaterally
[2018-02-06] MEDS ORDERED: Bupivacaine 0.5% Inj(30mL) IJ ONE (15:15)
[2018-02-06] MEDS ORDERED: MethylPREDNISolone Depo 40 mg/ml Inj IM ONE (15:15)
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
[2018-02-06 20:52] VITALS: RESP 20
[2018-02-07] MEDS: Sodium Chloride 0.9% 1,000 ML IV SCH (01:42)
[2018-02-07 02:05] VITALS: BP 164/71; PULSE 53; TEMP 97.9; O2SAT 95
--- NOTE | 2018-02-07 02:11 | CON ---
DATE: 02/06/2018 ORTHOPEDIC CONSULTATION HISTORY OF PRESENT ILLNESS: A 77-year-old male and I was asked to see him for bilateral knee pain, right worse than the left. X-rays had showed osteoarthritis of both knees with decreased medial joint space of both knees and he has had a past history of this and he has been treated at the [facility] for periodic injection of Hyalgan or Depo-Medrol once in a while at the [facility]. So, I could offer him injection of Depo-Medrol and Marcaine to the right knee, which I did, to help his symptoms. He has no evidence of effusion. Good range of motion, just mild varus and cortisone could be given also to the left knee probably in the office or tomorrow if he still wishes and at the office we give the Hyalgan, so I will probably follow him again and see how he does in the morning if he wants the injection in the left knee too. FINAL DIAGNOSIS: Bilateral knee osteoarthritis, worse on the right than the left both knees have enthesopathy . . Natanael Gavin DO [facility]
[2018-02-07 06:34] LABS: EOS % 0.6 % (1.5-5.0); GRAN # 0.88 (1.4-6.5); GRAN % 50.8 % (50.0-68.0); HEMOGLOBIN 14.8 g/dL (14.0-18.0); LYMPH # 0.8 (1.2-3.4); LYMPH % 45.1 % (22.0-35.0); MEAN CELL VOLUME 84.7 fl (80.0-105.0); MEAN CORPUSCULAR HEMOGLOBIN 28.6 pg (25.0-35.0); MEAN CORPUSCULAR HGB CONC 33.8 g/dl (31.0-37.0); MEAN PLATELET VOLUME 10.1 fl (7.0-11.0); MONO # 0.1 (0.1-0.6); MONO % 3.5 % (1.0-6.0); RBC 5.17 10^6/uL (3.5-6.1); RED CELL DISTRIBUTION WIDTH 14.1 % (11.5-14.5)
[2018-02-07 06:46] LABS: WHITE BLOOD COUNT 1.7 10^3/ul (4.5-11.0)
[2018-02-07 06:52] LABS: ALB/GLOB RATIO 1.2 (1.1-1.8); ALBUMIN 3.8 g/dL (3.0-4.8); ALT/SGPT 43 U/L (7-56); AST/SGOT 64 U/L (17-59); BLOOD UREA NITROGEN 19 mg/dL (7-21); CALCIUM 8.9 mg/dL (8.4-10.5); GFR AFRICAN-AMERICAN > 60; GFR NON-AFRICAN AMERICAN > 60
[2018-02-07] MEDS ORDERED: MethylPREDNISolone Depo 40 mg/ml Inj IM ONE (08:38)
[2018-02-07] MEDS ORDERED: Bupivacaine 0.5% Inj(30mL) IJ ONE (08:38)
--- NOTE | 2018-02-08 07:28 | PROCN ---
DATE: ORTHOPEDIC CONSULT AND PROCEDURE REPORT A 77-year-old male with bilateral knee enthesopathy. He had an injection to the right knee yesterday with Depo-Medrol and Marcaine, feels much better, even though I told him it would be temporary, and he is willing to come to the office for the Euflexxa injections Hyalgan for the arthritic knees, which mostly on the medial side of both knees, but before he goes home, he wants an injection on the left knee to help with this pain, so he can ambulate with more security, so we injected the left knee today with Depo-Medrol and Marcaine. He presented yesterday for the right knee, for the enthesopathy, and we will see him in the office as he was discharged for the Hyalgan injections. He is feeling much better with the right knee. He has bilateral genu varum also with decreased joint space on the medial side. Natanael Gavin DO
--- NOTE | 2018-02-08 11:59 | DS ---
HISTORY OF PRESENT ILLNESS: The patient is 77 years old, seen and examined, ambulating. No chest pain, no shortness of breath. PHYSICAL EXAMINATION: VITAL SIGNS: He is afebrile, pulse 53, respirations 20, blood pressure 164/71. LUNGS: Bilateral good airflow. No rhonchi or crackle. HEART: S1 and S2 audible. ABDOMEN: Soft, nontender. No rebound. No guarding. NEUROLOGICAL: The patient is awake, alert, oriented, communicative, ambulatory. LABORATORY DATA: WBC is 1.7, hemoglobin 14.8, hematocrit 43.8, platelets of 98. Chemistry: Sodium 142, potassium 4.5, chloride 107, CO2 24, BUN 19, creatinine 0.9, blood sugar of 178. Urinalysis is unremarkable. Urine culture shows Gram-negative rods and the colony count is less than 10,000. X-ray of both knees shows moderate joint space narrowing with medial compartment bilaterally. The patient was given intraarticular injection by Dr. Gavin yesterday. ASSESSMENT AND PLAN: 1. Status post multiple falls. 2. Status post rhabdomyolysis. 3. Leukopenia, etiology is still undetermined. 4. Thrombocytopenia. 5. Resolved rhabdomyolysis. PLAN: The patient started to feel better. He wanted to go home. So, he signed against medical advice this morning. I will follow up him as outpatient. Reece Haddad MD
== END 2018-02-07 09:13 | disposition left against medical advice (07) | DRG 558 ==
LOC: ED 00:42 → ERH 04:04 → 3RSO 05:25 → 3RNO 02-07 00:19
PROVIDERS: ADMIT Internal Medicine; ATTEND Internal Medicine
PROC: 3E0U33Z Introduction of Anti-inflammatory into Joints, Percutaneous Approach (ICD-10-PCS; principal; 2018-02-06)
PROC: 3E0U3BZ Introduction of Anesthetic Agent into Joints, Percutaneous Approach (ICD-10-PCS; 2018-02-06)
PROC: 3E0U33Z Introduction of Anti-inflammatory into Joints, Percutaneous Approach (ICD-10-PCS; 2018-02-07)
PROC: 3E0U3BZ Introduction of Anesthetic Agent into Joints, Percutaneous Approach (ICD-10-PCS; 2018-02-07)
DX: M62.82 Rhabdomyolysis (principal); N17.9 Acute kidney failure, unspecified; D69.6 Thrombocytopenia, unspecified; E86.0 Dehydration; K86.2 Cyst of pancreas; I10 Essential (primary) hypertension; I25.10 Atherosclerotic heart disease of native coronary artery without angina pectoris; D72.819 Decreased white blood cell count, unspecified; E78.5 Hyperlipidemia, unspecified; E87.6 Hypokalemia; F41.9 Anxiety disorder, unspecified; I25.2 Old myocardial infarction; M17.0 Bilateral primary osteoarthritis of knee; M77.9 Enthesopathy, unspecified; R29.6 Repeated falls; Z79.82 Long term (current) use of aspirin; Z79.899 Other long term (current) drug therapy; Z87.891 Personal history of nicotine dependence; Z91.81 History of falling; Z95.5 Presence of coronary angioplasty implant and graft; R40.2412 Glasgow coma scale score 13-15, at arrival to emergency department; L98.9 Disorder of the skin and subcutaneous tissue, unspecified; M51.36 Other intervertebral disc degeneration, lumbar region

== ENCOUNTER 2018-11-03 00:26 | Emergency (ER) | payer MEDICARE ==
[2018-11-03 00:27] VITALS: BMI 25.6
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
[2018-11-03 03:38] VITALS: BP 133/75; PULSE 62; RESP 17; TEMP 98.5; O2SAT 99
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
== END 2018-11-03 02:48 | disposition home or self-care (01) ==
LOC: ED 00:26
DX: S09.90XA Unspecified injury of head, initial encounter (principal); V49.49XA Driver injured in collision with other motor vehicles in traffic accident, initial encounter; Y92.410 Unspecified street and highway as the place of occurrence of the external cause; M54.5 Low back pain; M25.512 Pain in left shoulder